=== PATIENT | female | born 1975 | race American Indian/Alaskan Native ===

== ENCOUNTER 2020-02-06 17:48 | Emergency (ER) | payer SELFPAY ==
[2020-02-06] MEDS ORDERED: DIPHtheria,PERTUSSIS(ACELL),TETANUS VACCINE/PF 0.5 ML VIAL IM ONE (20:05)
[2020-02-06] MEDS ORDERED: IBUPROFEN 600 MG TAB PO ONE (20:05)
[2020-02-06] MEDS ORDERED: LIDOCAINE-MPF (1%) 10 MG/1 ML VIAL 5 ML INFILTRATI ONE (20:05)
--- NOTE | 2020-02-06 21:01 | Emergency Department Report ---
- General Chief Complaint: Wound/Laceration Stated Complaint: HAND LAC Source: patient Mode of arrival: Ambulatory Limitations: No Limitations - History of Present Illness Initial Comments: Patient is a 44-year-old -[place] female with no past medical history presents to the ED with complaint of acute onset painful bleeding left fourth and middle finger lacerations after a brand-new knife that she just purchased at accidentally cut her left middle and fourth fingers on the palmar side while she was trying to store these knives away about 2 hours ago. Patient states that the bleeding has been extensive and she got scared and came to the ED for evaluation. Patient states that she is not up-to-date with her tetanus vaccinations. Patient denies numbness and tingling or weakness of left hand or left middle and fourth fingers. -: Sudden, hour(s) (2) Location: other (left 4th and middle fingers) Extremity Location: Left: Hand (middle and 4th finger lacerations) Place: home Patient Tetanus UTD: No (Given during this visit) Context: accidental Associated Symptoms: pain. denies: loss of feeling/numbness, suspect foreign body present, unable to move injured part, weakness followed by dizziness, nausea/vomiting, fever Treatments Prior to Arrival: bandage - Related Data Previous Rx's Medication Instructions Recorded Last Taken Type Ibuprofen [Motrin] 600 mg PO Q8H PRN #20 tablet 02/06/20 Unknown Rx cephALEXin [Keflex] 500 mg PO Q8HR #30 capsule 02/06/20 Unknown Rx Allergies Allergy/AdvReac Type Severity Reaction Status Date / Time No Known Allergies Allergy Unverified 02/06/20 17:56 ED Review of Systems ROS: Stated complaint: HAND LAC Other details as noted in HPI Constitutional: denies: chills, fever Eyes: denies: eye pain, eye discharge, vision change ENT: denies: ear pain, throat pain Respiratory: denies: cough, shortness of breath, wheezing Cardiovascular: denies: chest pain, palpitations Endocrine: no symptoms reported Gastrointestinal: denies: abdominal pain, nausea, diarrhea Genitourinary: denies: urgency, dysuria, discharge Musculoskeletal: arthralgia (bleeding left ring and middle finger pain with bleeding laceration). denies: back pain, joint swelling Skin: other (Bleeding painful lacerations on left ring and middle fingers). denies: rash, lesions Neurological: denies: headache, weakness, paresthesias Psychiatric: denies: anxiety, depression Hematological/Lymphatic: denies: easy bleeding, easy bruising ED Past Medical Hx - Past Medical History Previous Medical History?: No - Surgical History Past Surgical History?: No - Social History Smoking Status: Never Smoker Substance Use Type: None - Medications Home Medications: Home Medications Medication Instructions Recorded Confirmed Last Taken Type Ibuprofen [Motrin] 600 mg PO Q8H PRN #20 tablet 02/06/20 Unknown Rx cephALEXin [Keflex] 500 mg PO Q8HR #30 capsule 02/06/20 Unknown Rx ED Physical Exam - General Limitations: No Limitations General appearance: alert, in no apparent distress - Head Head exam: Present: atraumatic, normocephalic, normal inspection - Eye Eye exam: Present: normal appearance, PERRL, EOMI Pupils: Present: normal accommodation - ENT ENT exam: Present: normal exam, normal orophraynx, mucous membranes moist, TM's normal bilaterally, normal external ear exam - Neck Neck exam: Present: normal inspection, full ROM - Respiratory Respiratory exam: Present: normal lung sounds bilaterally. Absent: respiratory distress, wheezes, rales, rhonchi, chest wall tenderness, accessory muscle use, decreased breath sounds, prolonged expiratory - Cardiovascular Cardiovascular Exam: Present: regular rate, normal rhythm, normal heart sounds. Absent: systolic murmur, diastolic murmur, rubs, gallop - GI/Abdominal GI/Abdominal exam: Present: soft, normal bowel sounds. Absent: tenderness, guarding, hyperactive bowel sounds - Extremities Exam Extremities exam: Present: normal inspection, full ROM, tenderness (Palpable left ring (3 cm) and middle finger (3 cm) lacerations on palmar side with tenderness), normal capillary refill. Absent: pedal edema, joint swelling, calf tenderness - Back Exam Back exam: Present: normal inspection, full ROM. Absent: tenderness, CVA tenderness (R), CVA tenderness (L), muscle spasm, paraspinal tenderness - Neurological Exam Neurological exam: Present: alert, oriented X3, CN II-XII intact, normal gait, reflexes normal - Psychiatric Psychiatric exam: Present: normal affect, normal mood, anxious - Skin Skin exam: Present: warm, dry, intact, normal color, other (Bleeding left ring finger (3 cm) and middle finger (3 cm) lacerations with tenderness). Absent: rash ED Course Vital Signs 02/06/20 02/06/20 17:56 20:20 Temperature 97.6 F Pulse Rate 92 H Respiratory 20 16 Rate Blood Pressure 111/82 O2 Sat by Pulse 100 Oximetry - Laceration /Wound Repair Left Palm Finger Wound Location: upper extremity (left middle finger) Wound Length (cm): 3 Wound's Depth, Shape: superficial, linear Wound Explored: contaminated Irrigated w/ Saline (ccs): 100 Betadine Prep?: Yes Anesthesia: 1% Lidocaine Volume Anesthetic (ccs): 3 Wound Debrided: extensive Wound Repaired With: sutures Suture Size/Type: 4:0, proline Number of Sutures: 3 Layer Closure?: No Sterile Dressing Applied?: No Progress: Patient tolerated the procedure well. Patient will discharge home on oral antibiotics and pain medications and advised to follow-up with her primary care physician in 7 to 10 days for reevaluation or return to the ED immediately if symptoms get worse. Patient also advised to return to the ED or to her primary care physician in 12 to 14 days for suture removal. Left Palm Hand Wound Location: upper extremity (left ring finger ) Irrigated w/ Saline (ccs): 100 Betadine Prep?: Yes Anesthesia: 1% Lidocaine Volume Anesthetic (ccs): 3 Wound Debrided: extensive Wound Repaired With: sutures Suture Size/Type: 4:0, proline Number of Sutures: 3 Layer Closure?: No Sterile Dressing Applied?: Yes Progress: Patient tolerated procedure well, and the wound was dressed appropriately. Patient was discharged home on prophylactic antibiotics and pain medications. Patient was advised to follow-up with her primary care physician in 7 to 10 days for reevaluation. Patient was also advised to return to the ED or to her primary care physician in 12 to 14 days for suture removal. ED Medical Decision Making - Medical Decision Making This is a 44-year-old -[place] female with no past medical history presents to the ED with complaint of acute onset painful bleeding left fourth and middle finger lacerations after a brand-new knife that she just purchased at accidentally cut her left middle and fourth fingers on the palmar side while s he was trying to store these knives away about 2 hours ago. Patient states that the bleeding has been extensive and she got scared and came to the ED for evaluation. Patient states that she is not up-to-date with her tetanus vaccinations. In the ED, patient is alert and oriented x3 and is not in distress. Patient was treated in the ED for pain and also received booster tetanus vaccinations. The left ring and middle finger lacerations were cleaned thoroughly and sutured per protocol. Patient tolerated the procedure well. The wound was dressed appropriately after suture procedure. Patient was discharged home on pain medication and prophylactic antibiotics and advised to return to the ED immediately if symptoms get worse. Patient was otherwise advised to follow-up with her primary care physician in 7 to 10 days for reevaluation. Patient was also advised to return to the ED or follow-up with her primary care physician in 12 to 14 days for suture removal. - Differential Diagnosis Finger lacerations; Finger abrasions; Hand contusion Critical care attestation.: If time is entered above; I have spent that time in minutes in the direct care of this critically ill patient, excluding procedure time. ED Disposition Clinical Impression: Laceration of left ring finger w/o foreign body w/o damage to nail Qualifiers: Encounter type: initial encounter Qualified Code(s): S61.215A - Laceration without foreign body of left ring finger without damage to nail, initial encounter Injury of left hand including fingers Qualifiers: Encounter type: initial encounter Qualified Code(s): S69.92XA - Unspecified injury of left wrist, hand and finger(s), initial encounter Laceration of left middle finger w/o foreign body w/o damage to nail Qualifiers: Encounter type: initial encounter Qualified Code(s): S61.213A - Laceration without foreign body of left middle finger without damage to nail, initial encounter Disposition: DC- TO HOME OR SELFCARE Is pt being admited?: No Does the pt Need Aspirin: No Condition: Stable Instructions: Laceration (ED), Suture Care (ED), Finger Laceration (ED) Additional Instructions: Take medication with food, drink plenty fluids and follow-up with your primary care physician in 7 to 10 days for reevaluation. Return to the ED immediately if symptoms get worse. Otherwise return to the ED or to your primary care physician in 12 to 14 days for suture removal. Prescriptions: cephALEXin [Keflex] 500 mg PO Q8HR #30 capsule Ibuprofen [Motrin] 600 mg PO Q8H PRN #20 tablet PRN Reason: Pain Referrals: [facility] [Provider Group] - 7-10 days Time of Disposition: 21:01 Print Language: CANADIAN
[2020-02-06 21:24] VITALS: BP 112/76
== END 2020-02-06 21:24 | disposition home or self-care (01) ==
LOC: ED 17:48
DX: S61.213A Laceration without foreign body of left middle finger without damage to nail, initial encounter (principal); S61.215A Laceration without foreign body of left ring finger without damage to nail, initial encounter; Z79.1 Long term (current) use of non-steroidal anti-inflammatories (NSAID); Z79.899 Other long term (current) drug therapy
CPT/HCPCS: 90471; 90715

== ENCOUNTER 2020-02-20 14:34 | Emergency (ER) | payer SELFPAY ==
[2020-02-20 14:41] VITALS: BP 115/61
--- NOTE | 2020-02-20 16:05 | Emergency Department Report ---
Suture/Staple Removal - HPI Chief Complaint: Laceration/Recheck/Suture Stated Complaint: LFT HAND REMOVE STITCHS Time Seen by Provider: 02/20/20 15:17 When Sutures or Wesley Placed: 11-14 Days Ago Wound Location: left 3rd and 4th finger ED Review of Systems ROS: Stated complaint: LFT HAND REMOVE STITCHS Other details as noted in HPI Comment: All other systems reviewed and negative ED Past Medical Hx - Past Medical History Previous Medical History?: No - Surgical History Past Surgical History?: No - Social History Smoking Status: Never Smoker Substance Use Type: None - Medications Home Medications: Home Medications Medication Instructions Recorded Confirmed Last Taken Type Ibuprofen [Motrin] 600 mg PO Q8H PRN #20 tablet 02/06/20 Unknown Rx cephALEXin [Keflex] 500 mg PO Q8HR #30 capsule 02/06/20 Unknown Rx Suture Removal Exam - Exam General: Vital signs noted. No distress. Alert and acting appropriately. Wound: No Pathologic Erythema, No Tenderness, No Drainage, No Pus, No Wound Dehiscence Other Systems: All other systems reviewed and are unremarkable. ED Course Vital Signs 02/20/20 14:38 Temperature 98.5 F Pulse Rate 91 H Respiratory 18 Rate Blood Pressure 115/61 O2 Sat by Pulse 100 Oximetry ED Recheck MDM - Differential Diagnosis Suture/Staple Removal - Medical Decision Making 44-year-old female presents with laceration removal that was implemented on 05 February. 6 sutures were removed from fingers 3 each to the third and fourth digit of the left hand. Patient tolerated suture removal with no problem. Vital signs are normal patient is in no acute distress. Critical care attestation.: If time is entered above; I have spent that time in minutes in the direct care of this critically ill patient, excluding procedure time. ED Disposition Clinical Impression: Encounter for removal of sutures Disposition: DC-01 TO HOME OR SELFCARE Is pt being admited?: No Does the pt Need Aspirin: No Condition: Stable Additional Instructions: Make sure to follow up with the primary care physician as discussed. If you have any worsening symptoms or develop new symptoms please return to ED immediately. Referrals: PRIMARY CARE, [Primary Care Provider] - 3-5 Days Forms: Work/School Release Form(ED) Time of Disposition: 16:05
== END 2020-02-20 16:38 | disposition home or self-care (01) ==
LOC: ED 14:34
DX: S61.215D Laceration without foreign body of left ring finger without damage to nail, subsequent encounter (principal); X58.XXXD Exposure to other specified factors, subsequent encounter

== ENCOUNTER 2020-10-26 12:25 | Emergency (ER) | payer SELFPAY ==
[2020-10-26 12:57] VITALS: BP 128/76
--- NOTE | 2020-10-26 13:08 | Emergency Department Report ---
Chief Complaint: Eye Problems Stated Complaint: EYE IRRITATION - HPI History of Present Illness: 45-year-old female presents to the emergency room for 1 day history of left eye irritation. Patient denies any trauma to her eyes she denies any blurred vision denies wearing contacts. She states that it is itchy in the corner and that the lateral part of the lower eye rim. She denies any purulent discharge no matting eyelashes. - Exam Physical Exam: Alert and oriented x3 no acute distress nontoxic in appearance Left eye nonerythematous no edema test pupils are equal round and reactive. Nonlabored breathing no accessory muscles use Ambulatory without difficulties MSE screening note: Focused history and physical exam performed. Due to findings the following was ordered: 45-year-old female presents to the emergency room for 1 day history of left eye irritation. Patient denies any trauma to her eyes she denies any blurred vision denies wearing contacts. She states that it is itchy in the corner and that the lateral part of the lower eye rim. She denies any purulent discharge no matting eyelashes. ED Disposition for MSE Disposition: Z-07 MED SCREENING EXAM-LEFT Is pt being admited?: No Does the pt Need Aspirin: No Condition: Stable Additional Instructions: Be sure to wash your hands when touching your eyes. Follow-up at urgent care. Referrals: [facility] [Other] - 3-5 Days
== END 2020-10-26 13:30 | disposition left against medical advice (07) ==
LOC: ED 12:25
DX: H57.9 Unspecified disorder of eye and adnexa (principal); Z53.21 Procedure and treatment not carried out due to patient leaving prior to being seen by health care provider